=== PATIENT | female | born 1955 | race Caucasian/White ===

== ENCOUNTER 2017-02-07 07:08 | Emergency (ER) | payer SELFPAY ==
[2017-02-07] MEDS ORDERED: Ipratropium 0.5MG/2.5ML NEB* 0.5 MG/2.5 ML NEB.SOLN INH ONE (07:31)
[2017-02-07] MEDS ORDERED: Albuterol 2.5 MG/3 ML NEB.SOL* (0.083%) INH ONE (07:31)
--- NOTE | 2017-03-11 21:25 | UC ---
Julian De Guzman Aidan, scribed for Elida Vela DO on 02/07/17 at 0740 . Shortness of Breath HPI - HPI Summary HPI Summary: 61 y/o female presents to the Urgent Care with a complaint of acute, constant, moderate SOB that began roughly 1 week ago with associated abdominal pain during onset and today. Associated symptoms include a productive cough with chest congestion, acute, moderate episodes of dizziness that have persisted intermittently for the past 3 days, and feeling as though her throat is closing up for the past week,. Pt denies any fevers, chills, diaphoresis, nausea, vomiting, CP, ear ache, muscle aches, or joint pain. She does not have a nebulizer at home and claims that she does not feel sick. 1 week ago, she saw her PCP and was given prednisone and HTN medication. She has finished her course of prednisone. Previously, nebulizer treatment has alleviated similar symptoms. - History of Current Complaint Chief Complaint: UCRespiratory Stated Complaint: THROAT COMPLAINT Time Seen by Provider: 02/07/17 07:23 Hx Obtained From: Patient ?: No Onset/Duration: Sudden Onset, Lasting Days, Still Present Timing: Constant Current Severity: Moderate Dyspnea At: Rest - and on exertion Aggrevating Factors: Nothing - unknown Alleviating Factors: Bronchodilators - nebulizer treatment has alleviated similar symptoms in the past Associated Signs & Symptoms: Positive: Cough (Productive), Dizzy - episodes persisting intermittently for the past 3 days, Other - abdominal pain, feeling as though her throat is closing up Related History: Similar Episode - sx alleviated by bronchodilators - Risk Factors Cardiac: Smoking - former smoker - Allergy/Home Medications Allergies/Adverse Reactions: Allergies Allergy/AdvReac Type Severity Reaction Status Date / Time No Known Allergies Allergy Verified 02/07/17 07:15 Home Medications: Home Medications Cetirizine* [ZyrTEC 10 MG TAB*] 10 mg PO DAILY 02/07/17 [History Confirmed 02/07] Furosemide TAB* [Lasix TAB*] 20 mg PO DAILY 02/07/17 [History Confirmed 02/07/17 ] Montelukast Sodium TAB* [Singulair TAB*] 10 mg PO DAILY 02/07/17 [History Confirmed 02/07/17] cloNIDine TAB* [Catapres 0.1 MG TAB*] 0.1 mg PO DAILY 02/07/17 [History Confirmed 02/07/17] PMH/Surg Hx/FS Hx/Imm Hx Cardiovascular History: Hypertension - Surgical History Surgical History: Yes Surgery Procedure, Year, and Place: hyster - Family History Known Family History: Positive: Cardiac Disease - [place], Diabetes - Social History Occupation: Employed Full-time Lives: Alone Alcohol Use: None Substance Use Type: None Smoking Status (MU): Former Smoker Review of Systems Constitutional: Negative Skin: Negative Eyes: Negative ENT: Negative Respiratory: Shortness Of Breath, Cough, Other - feeling as though throat is closing up x 1wk Gastrointestinal: Abdominal Pain Motor: Negative Neurovascular: Negative Musculoskeletal: Negative Neurological: Other - dizziness Psychological: Negative All Other Systems Reviewed And Are Negative: Yes Physical Exam Triage Information Reviewed: Yes Appearance: Well-Appearing, No Pain Distress, Well-Nourished Vital Signs: Initial Vital Signs Temp 98.6 F 02/07/17 07:15 Pulse 90 02/07/17 07:15 Resp 16 02/07/17 07:15 BP 120/71 02/07/17 07:15 Pulse Ox 92 02/07/17 07:15 Vital Signs Reviewed: Yes Eyes: Positive: Conjunctiva Clear ENT: Positive: Hearing grossly normal, TMs normal. Negative: Tonsillar swelling , Tonsillar exudate, Trismus, Muffled/hoarse voice Neck: Positive: Supple, Nontender Respiratory: Positive: Wheezing - diffuse tight wheezing Cardiovascular: Positive: RRR, No Murmur Musculoskeletal Exam: Normal Neurological: Positive: Alert, Muscle Tone Normal Psychological Exam: Normal Psychological: Positive: Age Appropriate Behavior Skin Exam: Normal, Other - warm, dry, normal color Re-Evaluation - Re-Evaluation First Eval Re-Evaluation Time: 08:18 - breathing treatment improved the patient's symptoms Change: Improved Shortness of Breath Dx - Course Course Of Treatment: 61 y/o female presents with SOB and feeling as though her throat is closing up. Symptoms have persisted for roughly 1 week. This is her third course of steroids since late December. She was first given a dose for a swollen knee without injury. 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 Therefore, we will test for lyme. - Differential Dx/Diagnosis Differential Diagnosis/HQI/PQRI: Asthma, Bronchitis, Pneumonia, Other - sinusitis, allergies Provider Diagnoses: bronchitis Discharge - Discharge Plan Condition: Stable Disposition: HOME Prescriptions: Albuterol HFA INHALER* [Ventolin HFA Inhaler*] 2 puff INH Q4H PRN #1 mdi PRN Reason: Sob/Wheezing DOXYcycline CAP(*) [DOXYcycline 100MG CAP(*)] 100 mg PO BID #28 cap Spacer/Aerosol-Holding Chamber [Aerochamber Plus] 1 mis .SEE ORDER SEE INSTRUCTIONS #1 mis guaiFENesin ER TAB [Mucinex*] 600 mg PO BID PRN #1 box PRN Reason: Cough predniSONE TAB* [Deltasone TAB*] 10 mg PO DAILY #32 tab Patient Education Materials: Acute Bronchitis (ED) Referrals: Katalina Fall [Primary Care Provider] - If Needed Additional Instructions: TRY USING THE NETTI POT IN THE MORNINGS DISCUSSED. YOU MUST ALWAYS USE CLEAN WATER. INHALED BRONCHODILATORS: You have received a prescription for an inhaled bronchodilator -- a medication which stimulates the airways in the lung to dilate. This improves the flow of air in asthma, bronchitis, and emphysema. These medicines have some similarity to adrenaline, and can cause similar side effects: shakiness, racing heart, and a sense of nervousness. These side effects decrease with time. Contact your doctor if these side effects are severe. Do not over-use the medicine. Too-frequent use of the inhaler may make it ineffective. Call your doctor if the inhaler is not controlling your symptoms at the prescribed doses. EXPECTORANT MEDICATION: WE SENT IN A SCRIPT FOR MUCINEX SO THAT IT IS EASIER FOR YOU TO PICK THE RIGHT MED AT THE PHARMACY. HOWEVER, YOU CAN ALSO GO TO THE [employer] [facility] AND BUY PLAIN GUAIFENESIN WITHOU BINDERS OR FILLERS. An expectorant medicine has been prescribed. This type of drug makes mucous thinner, helping the sinuses, nose, and bronchial tubes to remain free of pus and mucous. Expectorants make a cough less severe and more comfortable, and help infected sinuses drain. In general, antihistamines defeat the purpose of the expectorant by making mucous thicker. They should be avoided unless specifically recommended by your physician. CORTICOSTEROID MEDICATION: You have been given a medicine of the cortisone class. This medication is used to control inflammation or allergy. It is usually only given for a short period of time, until the acute process subsides. There are usually no side effects from short-term use of cortisone-like medications. Some persons feel an increased sense of well-being and are not sleepy at bedtime. Long-term use of cortisone medications is best avoided, unless required for a severe condition. If your condition does not remit, or relapses after the course of corticosteroid medication, you should consult your physician. Contact the physician if you develop lightheadedness, black or tarry stools , swelling of the legs, or significant rapid change in weight. DOXYCYCLINE: Doxycycline (Vibramycin, Doryx) is an antibiotic of the tetracycline family. This type of drug is useful for infections of the respiratory tract and genital tract, and is sometimes used for intestinal infections. Unlike most tetracyclines, doxycycline can be taken with food. It is longer acting, and (usually) less prone to side effects than regular tetracycline. Tetracycline antibiotics can stain immature teeth and SHOULD NOT BE TAKEN BY CHILDREN, NURSING MOTHERS, OR WOMEN. Tetracyclines can make you more prone to sunburn. Abdominal cramping, nausea, and diarrhea are occasional side effects. Women may experience vaginal yeast infections. Call the doctor at once if you develop hives, itching, shortness of breath , or lightheadedness. DISCUSSED, DOXY ALSO INCREASES YOUR RISK OF SUNBURN. COVER UP WHEN YOU GO OUTSIDE. ANYTIME YOU TAKE AN ANTIBIOTIC, IT IS IMPORTANT TO REPLENISH THE BODY's SUPPLY OF "GOOD BACTERIA." YOU CAN GET GOOD BACTERIA FROM HIGH QUALITY CULTURED FOODS SUCH LOCAL YOGURT, SOUR KRAUT, [employer], NATURALLY FERMENTED PICKLES AND PROBIOTIC DRINKS. YOU CAN ALSO GET GOOD BACTERIA FROM A PROBIOTIC SUPPLEMENT. The documentation as recorded by the Julian gibson Aidan accurately reflects the service I personally performed and the decisions made by me, Elida Vela DO.
== END 2017-02-07 08:45 | disposition home or self-care (01) ==
LOC: UCEAST 07:08
DX: J40 Bronchitis, not specified as acute or chronic (principal); R42 Dizziness and giddiness; R10.9 Unspecified abdominal pain; I10 Essential (primary) hypertension; Z87.891 Personal history of nicotine dependence
CPT/HCPCS: 86618; 99202; G0463; J7644

== ENCOUNTER 2019-04-01 07:40 | Emergency (ER) | payer OTHER ==
[2019-04-01 07:54] VITALS: BP 146/77
[2019-04-01] MEDS ORDERED: Lidocaine 1% MPF ** 5 ML VIAL INJ ONE (08:03)
[2019-04-01] MEDS ORDERED: Tetan/Diph/Pertus SYR(Tdap)* 0.5 ML SYR(BOOSTRIX) use SYR IM ONE (08:03)
--- NOTE | 2019-04-01 08:05 | UC ---
Laceration HPI - HPI Summary HPI Summary: Patient is a 63-year-old female here with a right second finger laceration. Patient caught her finger between a door and a chair she was moving. Patient had laceration to her right second digit over the PIP joint. Patient was able to range her finger last night but cannot this morning due to swelling. Patient has no numbness or tingling. Patient is not up-to-date on tetanus. Occurred at 9:30 last night Medications reviewed - History Of Current Complaint Chief Complaint: UCLaceration Stated Complaint: FINGER INJURY Time Seen by Provider: 04/01/19 07:55 Hx Obtained From: Patient Laceration Location: Hand Onset/Duration: Sudden Onset Pain Intensity: 5 - Allergies/Home Medications Allergies/Adverse Reactions: Allergies Allergy/AdvReac Type Severity Reaction Status Date / Time No Known Allergies Allergy Verified 04/01/19 07:53 Home Medications: Home Medications Amlodipine Besylate [Norvasc] 5 mg PO DAILY 04/01/19 [History Confirmed 04/01/19 ] PMH/Surg Hx/FS Hx/Imm Hx Previously Healthy: Yes - Surgical History Surgical History: Yes Surgery Procedure, Year, and Place: hyster - Family History Known Family History: Positive: Cardiac Disease - [place], Diabetes, Non-Contributory - Social History Alcohol Use: Daily Alcohol Amount: few glasses of wine Substance Use Type: None Smoking Status (MU): Former Smoker Review of Systems All Other Systems Reviewed And Are Negative: Yes Constitutional: Negative: Fever, Chills Neurovascular: Negative: Decreased Sensation, Decreased Pulses Physical Exam - Summary Physical Exam Summary: Vital Signs Reviewed: Yes A+Ox3, no distress Eyes: Conjunctiva Clear ENT: Hearing grossly normal neck: supple Respiratory: Positive: No respiratory distress, No accessory muscle use Cardiovascular: skin color reflect adequate perfusion Musculoskeletal Exam: Right second finger: Finger is swollen with no bony tenderness. Cap refill less than 2 seconds. There is a 3 cm laceration on the dorsal aspect of the finger over the PIP joint. Patient cannot range at that joint secondary to swelling. No numbness or tingling Neurological: Positive: Alert, ambulatory without difficulty Triage Information Reviewed: Yes Vital Signs: Initial Vital Signs Temp 98.7 F 04/01/19 07:49 Pulse 66 04/01/19 07:49 Resp 16 04/01/19 07:49 BP 146/77 04/01/19 07:49 Pulse Ox 97 04/01/19 07:49 Laceration Repair - Laceration Repair 1 Description: Irregular Laceration Size After Repair: Length (cm) - 3 Modified For Repair: No Type Injection: Digital Anesthesia Used: 1.0% Lido - 5 mL Cleansing Completed Via Routine Prep: Yes Irrigation With Pressure Irrigation Device: Yes Closure Material: Sutures Closure Method: Single Layer Suture Of: Skin Suture Type: Prolene - 7 simple interrupted Laceration Course/Dx - Course/Dx Course Of Treatment: Patient is here with a laceration to her right index finger. Patient was able to range her finger fully last night after the injury but cannot today due to swelling. Patient was given tetanus here. Patient had successful laceration repair here. Patient is placed in a finger splint to keep her finger extended due to the laceration location. - Differential Dx - Laceration/Wound Differental Diagnoses: Abrasion, Dehiscence, Foreign Body, Fracture, Laceration - Diagnosis Provider Diagnosis: Laceration of finger Discharge - Sign-Out/Discharge Documenting (check all that apply): Patient Departure All imaging exams completed and their final reports reviewed: No Studies - Discharge Plan Condition: Stable Disposition: HOME Patient Education Materials: Finger Laceration (ED) Referrals: Frandy Black PA [Primary Care Provider] - Additional Instructions: Please return in 10-14 days to get sure stitches removed. please take Tylenol and Advil for pain Please use a finger splint over the next 10 days Please return if you have fever, pus drainage, redness - Billing Disposition and Condition Condition: STABLE Disposition: Home
== END 2019-04-01 08:45 | disposition home or self-care (01) ==
LOC: UCEAST 07:40
DX: S61.210A Laceration without foreign body of right index finger without damage to nail, initial encounter (principal); W23.0XXA Caught, crushed, jammed, or pinched between moving objects, initial encounter; Y92.9 Unspecified place or not applicable; Z87.891 Personal history of nicotine dependence
CPT/HCPCS: 12001; 90715; 99211; G0463